=== PATIENT | female | born 1965 | race Caucasian/White ===

== ENCOUNTER 2016-12-07 13:49 | Emergency (ER) | payer OTHER ==
[~2016-12-07 13:49] MED LIST: AMOX1TAB11 PO; ASPI81TA44 PO; CYCL-331 PO; FLUT9.9S NS; HYDR12.53 PO; LOSA25TA4 PO; POTA10TA PO
--- NOTE | 2016-12-07 14:08 | PHYS DOC ---
General Chief Complaint: HIP PAIN Stated Complaint: HIP PAIN Time Seen by MD: 13:55 Source: patient Exam Limitations: no limitations Problems: History of Present Illness Initial Comments Patient is a 51-year-old female who comes to the ED complaining of left hip and buttock pain. Patient states that immediately prior to ED arrival she was playing golf. While playing immediately prior to arrival she felt a pop in her left hip/buttock followed by severe pain as she started to try to run. She's had constant pain since that time and feels that she has swelling. Pain is described as sharp and stabbing the located just inferior to left shield tuberosity. She has radiating pain and muscle tightness going down the back of her leg, denies numbness tingling weakness or other symptoms. She denies any other injury she did not fall. She admits to having a few drinks while playing golf and is appropriate and does not appear to be inebriated in the ED. No pre-arrival treatment Onset: just prior to arrival Severity: severe Pain/Injury Location: left thigh Method of Injury: other Modifying Factors: worse with jarring, worse with movement, improves with rest Allergies: Coded Allergies: Sulfa (Sulfonamide Antibiotics) (Verified Allergy, Unknown, 08/11/16) ofloxacin (Verified Allergy, Unknown, 08/11/16) quinapril (Verified Allergy, Unknown, 08/11/16) Past Medical History Medical History: other (anxiety, depression, hypertension) Surgical History: cholecystectomy (tubal ligation) Social History Smoker: non-smoker Alcohol: occasionally Drugs: none Review of Systems Constitutional: denies chills, denies diaphoresis, denies fever, denies malaise Respiratory: denies cough, denies shortness of breath Cardiovascular: denies chest pain, denies palpitations Gastrointestinal: denies diarrhea, denies nausea, denies vomiting Genitourinary: denies dysuria, denies frequency, denies hematuria Musculoskeletal: denies back pain, denies joint swelling, muscle pain, muscle stiffness, denies neck pain Psychiatric/Neurological: denies headache, denies numbness, denies paresthesia , denies weakness Physical Exam General Appearance: moderate distress, obese HEENT: normal ENT inspection Neck: non-tender, supple Cardiovascular/Respiratory: normal peripheral pulses, no respiratory distress Back: no CVA tenderness, no vertebral tenderness Hips: right hip non-tender, right hip normal inspection, right hip normal range of motion, right hip no evidence of injury, left hip limited range of motion, left hip soft tissue tenderness, left hip other (difficult exam as patient remained seated. Tenderness to palpation with muscle hypertonicity in the left hamstring muscles no palpable defect/divot or muscle deformity.) Neurologic/Tendon: normal sensation, normal motor functions, normal tendon functions, responds to pain Psychiatric: alert, oriented x 3 Skin: normal color, warm/dry Orders, Labs, Meds PATIENT: JORDIN PICKETT ACCOUNT: [id number] : 1965 LOCATION: ER AGE: 51 SEX: F EXAM STATUS: PRE ER ORD. PHYSICIAN: AARON CARVALHO DO REASON: "pop" left hip, pain PROCEDURE: HIP LEFT 2V WITH PELVIS Indication Pop. Pain left hip An AP view of the pelvis was obtained as well as targeted AP and frog leg views to the left hip. No acute finding is seen. Significant degenerative changes involving the left hip are not seen. DICTATED AND SIGNED BY: CHAPINCITO KO MD DATE: 12/07/16 1430 CC: GT MILLIGAN MD; AARON CARVALHO DO ~ I discussed the treatment plan patient expressed agreement and understanding. Departure Time of Disposition: 14:51 Disposition: 01 HOME, SELF-CARE Diagnosis: left hamstring strain versus tear Condition: GOOD Patient Instructions: Muscle Strain Additional Instructions: Nonweightbearing crutches only. Ice 15-20 minutes 4-6 times daily for the first 48 hours. After 48 hours if no pre-injury you may transition to heating pad. [id number] ibuprofen as needed for baseline pain control. Prescription: [place] 5 mg quantity 30 take with food as directed. Aggressive hydration and [id number] stool softeners to prevent constipation. Follow-up with your doctor next week for recheck. If no improvement may need MRI to evaluate for possible tear. Return to the ED with new or changing symptoms AARON CARVALHO DO Dec 07, 2016 14:08
--- NOTE | 2016-12-07 14:36 | RAD ---
Indication Pop. Pain left hip An AP view of the pelvis was obtained as well as targeted AP and frog leg views to the left hip. No acute finding is seen. Significant degenerative changes involving the left hip are not seen.
[2016-12-07] MEDS ORDERED: HYDROcodone/APAP 7.5/325MG 1 TAB TABLET PO ONE (15:20)
[2016-12-07] MEDS ORDERED: ONDANSETRON ODT 4 MG TAB.RAPDIS PO ONE (15:20)
[2016-12-07 15:35] VITALS: BP 134/73
[2016-12-07] MEDS ORDERED: fentaNYL PF 100 MCG/2 ML VIAL IM ONE (16:15)
== END 2016-12-07 17:06 | disposition home or self-care (01) ==
LOC: ER 13:49
DX: M25.552 Pain in left hip (principal); M54.5 Low back pain; I10 Essential (primary) hypertension; Z88.2 Allergy status to sulfonamides; Z88.1 Allergy status to other antibiotic agents; X58.XXXA Exposure to other specified factors, initial encounter; Y93.53 Activity, golf; Y99.8 Other external cause status; Y92.89 Other specified places as the place of occurrence of the external cause; Z88.8 Allergy status to other drugs, medicaments and biological substances
CPT/HCPCS: 73502; 96372; 99284; J3010; Q0162

== ENCOUNTER → 2017-03-26 | Outpatient (CLI) | payer OTHER ==
--- NOTE | 2017-03-26 13:35 | RAD ---
EXAM: Neck sonogram. HISTORY: Right sided neck tightness and swelling. TECHNIQUE: Sonographic imaging of the right neck was performed. COMPARISON: None. FINDINGS: There is a solid mass with internal blood flow within the right submandibular region of the site of probable concern, measuring 3.6 x 2.2 x 1.4 cm. The imaging appearance favors a pathologically enlarged lymph node. There are a few adjacent submandibular lymph nodes which maintain benign fatty shekhar, the largest of which measures 1.3 cm in maximum dimension. The parotid gland and visualized portions of the thyroid are unremarkable. IMPRESSION: 3.6 cm mass with internal vascularity within the right neck at the site of palpable concern, the appearance of which favors an abnormal lymph node. Contrast-enhanced neck CT can be performed for better characterization. This lesion is amenable to sonographically guided biopsy if clinically indicated.
== END | disposition home or self-care (01) ==
LOC: US 12:23
PROVIDERS: ATTEND Nurse Practitioner Family
DX: R59.0 Localized enlarged lymph nodes (principal)
CPT/HCPCS: 76536

== ENCOUNTER → 2017-04-02 | Outpatient (CLI) | payer OTHER ==
[~2017-04-02] MED LIST changes: +IOHEXOL 300 MG/ML 75 ML VIAL. IV ONE
--- NOTE | 2017-04-03 07:14 | RAD ---
CT neck and chest Indication: Multiple neck and chest lumps. Technique: CT of the neck and chest with 75 mL of Omnipaque 300 with multi planar reformats. Comparison: Ultrasound of the neck from 03/26/2017 Findings: CT neck: Visualized sections through the brain are within normal limits. The nasopharynx, oropharynx and hypopharynx are within normal limits. Submandibular glands, parotid glands and thyroid are within normal limits. 1.2 x 1.1 cm left submandibular lymph node (series 6 image 31). Left level 2A lymph node measuring 1.5 x 0.9 cm (series 6 image 26). The fatty hilum is preserved. The neck vasculature is patent. No soft tissue mass seen in the region of right neck BB. The visualized paranasal sinuses and mastoid air cells are clear. No suspicious bony lesions. Mild degenerative disc disease of the lower cervical spine. Impression: Enlarged left submandibular and level 2A lymph node, nonspecific. No soft tissue mass in the region of bilateral neck bases in the region localized by BB markers. Correlate with physical exam. CT chest: Clear neck bases. No supraclavicular, axillary, mediastinal or hilar adenopathy. Heart is normal in size. No pericardial or pleural effusion. Calcified granuloma in the left upper lobe. No pulmonary nodules. Diffuse fatty infiltration of the liver. Status post cholecystectomy. Visualized spleen, pancreas, adrenals and kidneys are within normal limits. No suspicious bony lesions. Multilevel degenerative disc disease. Impression: 1. No chest adenopathy. 2. Hepatic steatosis. PQRS Compliance Statement: One or more of the following individualized dose reduction techniques were utilized for this examination: 1. Automated exposure control 2. Adjustment of the mA and/or kV according to patient size 3. Use of iterative reconstruction technique
== END | disposition home or self-care (01) ==
LOC: CT 08:40
PROVIDERS: ATTEND Surgery
DX: J84.10 Pulmonary fibrosis, unspecified (principal); R59.0 Localized enlarged lymph nodes; M50.30 Other cervical disc degeneration, unspecified cervical region; K76.0 Fatty (change of) liver, not elsewhere classified; Z90.49 Acquired absence of other specified parts of digestive tract
CPT/HCPCS: 71260; 72132; Q9967

== ENCOUNTER → 2017-07-15 | Outpatient (CLI) | payer BC ==
[~2017-07-15] MED LIST changes: -IOHEXOL 300 MG/ML 75 ML VIAL. IV ONE
--- NOTE | 2017-07-15 13:28 | RAD ---
2 view chest 07/15/2017 Clinical indication: Cough. Comparison: Chest 09/07/2016, CT chest 04/02/2017. Findings: Cardiac and mediastinal silhouettes are unremarkable. No pleural effusion, pneumothorax or focal consolidation. Impression: No acute cardiopulmonary abnormality.
== END | disposition home or self-care (01) ==
LOC: DXRAD 10:47
PROVIDERS: ATTEND Family Medicine
DX: J06.9 Acute upper respiratory infection, unspecified (principal); E11.9 Type 2 diabetes mellitus without complications; I10 Essential (primary) hypertension; E78.5 Hyperlipidemia, unspecified
CPT/HCPCS: 71046

== ENCOUNTER 2020-07-30 08:56 | Emergency (ER) | payer BC ==
[~2020-07-30] VITALS: Ht 165.1 cm; Wt 95.0 kg
[~2020-07-30 08:56] MED LIST changes: -ASPI81TA44 PO; +ASPI81TA59 PO; -HYDR12.53 PO; +HYDR12.572 PO; +LOSA25TA11 PO; -LOSA25TA4 PO
[2020-07-30] MEDS ORDERED: KETOROLAC 60 MG/2 ML VIAL. IM ONE (09:30)
[2020-07-30 10:02] LABS: BACTERIA,URINE FEW /HPF (0-FEW); BILIRUBIN,URINE NEG (NEG); CLARITY,URINE CLEAR; COLOR,URINE YELLOW; GLUCOSE,URINE NEG (NEG); NITRITE,URINE NEG (NEG); SQUAMOUS EPITHELIAL CELL,UR MANY /LPF; UROBILINOGEN,URINE 0.2 mg/dL (0.2 mg/dL)
--- NOTE | 2020-07-30 10:05 | RAD ---
EXAM: CHEST 1 VIEW History: Pain COMPARISON: 07/15/2017 TECHNIQUE: Single portable radiograph of the chest FINDINGS: The cardiac silhouette is unremarkable. The lungs are clear bilaterally. The costophrenic sulci are clear and well demarcated. IMPRESSION: No radiographic evidence of an acute cardiopulmonary process. Electronically signed by: Tomas Mejias MD (07/30/2020 9:56 AM) [id number]
[2020-07-30] MEDS ORDERED: CEPH500C PO (10:11)
--- NOTE | 2020-07-30 10:12 | PHYS DOC ---
Past History Past Medical History: Anxiety, Diabetes, Hypertension Past Surgical History: Cholecystectomy, Tubal ligation, Other Alcohol Use: Occasionally Drug Use: None Adult General Chief Complaint Chief Complaint: BACK PAIN OR INJURY [facility] HPI Patient is a 55-year-old female who presents to the emergency room complaining of diffuse back pain is worse in her lower back for the last 5 days. She has been taking Tylenol without relief. She noticed some dysuria that started this morning and so she went to get checked for UTI. She also has had some congestion, loss of taste, and mild cough. She did not think it was possible that she had Covid. She denies any shortness of breath or chest pain. She does not have any abdominal pain. She states that the back pain feels like an aching. She also has some pain between her shoulder blades. Review of Systems Review of Systems Complete ROS is negative unless otherwise documented in HPI Current Medications Current Medications Current Medications Medications (Trade) Dose Ordered Sig/Ankit Start Time Stop Time Status Last Admin Dose Admin Ketorolac Tromethamine (Toradol Im) 60 mg 1X ONCE 07/30/20 09:30 07/30/20 09:31 DC 07/30/20 09:38 60 MG Allergies Allergies Allergies Coded Allergies Type Severity Reaction Last Updated Verified Sulfa (Sulfonamide Antibiotics) Allergy Unknown 07/30/20 Yes ofloxacin Allergy Unknown 07/30/20 Yes quinapril Allergy Unknown 07/30/20 Yes Physical Exam Physical Exam General: Awake, alert, NAD. Well Nourished, well hydrated. Cooperative HEENT: Atraumatic, EOMI, PERRL, airway patent, moist oral mucosa Neck: Supple, trachea midline Respiratory: CTA bilaterally, normal effort, no wheezing/crackles CV: RRR, no murmur, cap refill <2 GI: Soft, nondistended, nontender, no masses MSK: No obvious deformities, lower back tenderness diffusely on palpation Skin: Warm, dry, intact Neuro: A&O x3, speech NL, sensory and motor grossly intact, no focal deficits Psych: Normal affect, normal mood, not suicidal or homicidal Current Patient Data Vital Signs Vital Signs Date Time Temp Pulse Resp B/P (MAP) Pulse Ox O2 Delivery O2 Flow Rate FiO2 07/30/20 09:05 99.4 104 18 172/97 (122) 98 Lab Results Laboratory Tests Test 07/30/20 09:10 Urine Collection Type Unknown Urine Color Yellow Urine Clarity Clear Urine pH 5.5 Urine Specific [place] >=1.030 Urine Protein Neg (NEG-TRACE) Urine Glucose (UA) Neg mg/dL (NEG) Urine Ketones (Stick) Neg mg/dL (NEG) Urine Blood Neg (NEG) Urine Nitrite Neg (NEG) Urine Bilirubin Neg (NEG) Urine Urobilinogen Dipstick 0.2 mg/dL (0.2 mg/dL) Urine Leukocyte Esterase Trace (NEG) Urine RBC 1-2 /HPF (0-2) Urine WBC 5-10 /HPF (0-4) Urine Squamous Epithelial Cells Many /LPF Urine Bacteria Few /HPF (0-FEW) Urine Mucus Mod /LPF EKG EKG [] Radiology/Procedures Radiology/Procedures [] Heart Score Risk Factors: Risk Factors: DM, Current or recent (<one month) smoker, HTN, HLP, family history of CAD, obesity. Risk Scores: Risk Factors: DM, Current or recent (<one month) smoker, HTN, HLP, family history of CAD, obesity. Course & Med Decision Making Course & Med Decision Making Pertinent Labs and Imaging studies reviewed. (See chart for details) Patient is a 55-year-old female who presents to the emergency room complaining of back pain. UA does show some small amount of bacteria on white blood cells. As her dysuria started today it is possible this is the beginning of a UTI and she will be treated with Keflex. Patient is back aching and loss of taste may be due to novel coronavirus 19. She has not had any kind of trauma. She does not have any concerning signs of her symptoms of back pain. Covid swab was done. Patient cannot be on steroids that she has diabetes. Patient will follow up with her primary care physician. We discussed quarantine. Patient's test results and vitals while in the ED were fully reviewed and discussed with the patient. Patient is stable and at this time does not need admission to the hospital. We have discussed strict return precautions and the importance of following up with their Primary Care Physician. Patient stated understanding and was given an opportunity to ask any questions. Patient is in agreement with plan. Dragon Disclaimer Dragon Disclaimer This electronic medical record was generated, in whole or in part, using a voice recognition dictation system. Departure Departure: Impression: Primary Impression: Suspected 2019 novel coronavirus infection Additional Impression: UTI (urinary tract infection) Disposition: 01 DC HOME SELF CARE/HOMELESS Condition: STABLE Referrals: GT MILLIGAN MD (PCP) Patient Instructions: Urinary Tract Infection Additional Instructions: Thank you for visiting [facility]. We appreciate you trusting us with your care. If any additional problems come up please don't hesitate to return to visit us. Follow up with your primary care provider so they can plan additional care if needed and know about the problem that you had today. If symptoms worsen come back to the Emergency Department. Any concerning symptoms that start such as chest pain, shortness of air, weakness or numbness on one side of the body, running high fevers or any other concerning symptoms return to the ER. You have a viral syndrome which may include symptoms like muscle aches, fevers, chills, runny nose, cough, sneezing, sore throat, nausea, vomiting, or diarrhea. One of the potential viruses that you may have is SARS-CoV-2, the virus that causes COVID-19, also known as the Coronavirus. You are just as likely to have a different viral infection such as the common cold, flu, etc. Most patients with the Coronavirus have mild symptoms and recover on their own. Resting, staying hydrated, and sleep based on known cases can be helpful. As of todays visit, you are well enough to go home and treat your symptoms with oral fluids and over the counter medications. Coronavirus testing is not performed on most people with mild symptoms who are being discharged from the emergency department. If Coronavirus testing was performed today the results will not be available for possibly up to 3-4 days. If your result is positive you will be contacted. Please follow the following precautions at home: 1. Stay home except to get medical care. 2. As advised by the CDC, we recommend that you stay in your home and minimize contact with other people. We do not want you to spread the infection. 3. Those who are older or have significant medical issues may have more severe symptoms from this infection. We recommend self-isolation FOR AT LEAST 7 DAYS after your 1st day of symptoms. AFTER you feel better please wait AT LEAST ANOTHER WEEK before returning to regular activities and being around other people. 4. IF you become sicker and have difficulty breathing, chest pain, are unable to eat/drink, severe vomiting, diarrhea, or weakness you may need to return to the Emergency Department. 5. You should restrict activities outside of your home, except for getting medical care. DO NOT go to work, school, or public areas. Avoid using public transportation, ride sharing, or taxis. 6. Separate yourself from other people in your home. You should use a separate bathroom if possible. 7. Avoid sharing personal household items such as dishes, cups, eating utensils, towels, etc. 8. Clean all high touch surfaces every day (door knobs, counter tops, etc). Use a household cleaning spray or wipe per label instructions. 9. Clean your hands often. Wash your hands with soap and water for at least 20 seconds. 10. Cover your mouth and nose when you cough or sneeze. 11. Throw used tissues in the trash and immediately wash your hands. For additional resources please visit the CDC website or the [facility] ([phone]), you may also call 211 for further information. Scripts Cephalexin (CEPHALEXIN) 500 Mg Capsule 1 CAP PO BID for UTI for 5 Days, #10 CAP Prov: ROSEANN LARA MD 07/30/20 Problem Qualifiers ROSEANN LARA MD Jul 30, 2020 10:12
[2020-07-30 10:30] VITALS: BP 134/80
== END 2020-07-30 10:33 | disposition home or self-care (01) ==
LOC: ER 08:56
DX: N39.0 Urinary tract infection, site not specified (principal); Z20.822 Contact with and (suspected) exposure to COVID-19; F41.9 Anxiety disorder, unspecified; E11.9 Type 2 diabetes mellitus without complications; I10 Essential (primary) hypertension; Z90.49 Acquired absence of other specified parts of digestive tract; Z98.51 Tubal ligation status; Z88.2 Allergy status to sulfonamides; Z88.1 Allergy status to other antibiotic agents; Z88.8 Allergy status to other drugs, medicaments and biological substances
CPT/HCPCS: 71045; 81001; 87086; 96372; 99284; J1885; U0003